=== PATIENT | female | born 1950 | race Caucasian/White ===

== ENCOUNTER 2020-08-08 12:39 | Emergency (ER) | payer MEDICARE, BC, SELFPAY ==
[2020-08-08 13:00] VITALS: BP 121/65; PULSE 82; RESP 19; TEMP 36.8; O2SAT 98; BMI 29.0
--- NOTE | 2020-08-08 13:33 | HMH.EDUTC ---
[facility] [place] Disposition Clinical Impression: Encounter for laboratory testing for COVID-19 virus Disposition: Home, Self-Care Condition on Discharge: Good Instructions: DI for COVID-19 (Suspected or Confirmed ), Coronavirus Disease 2019, Preventing the Spread of Coronavirus Discharge Instructions Additional Instructions: *Monitor Temp, Over the counter Motrin or Tylenol as directed/as needed Tylenol every 4 hours and Motrin every 6 hours (as long as your family doctor has told you that you can take it) for fever or pain. and straight to ER if unable to lower temp less than 101.0 after medication given Follow up IMMEDIATELY for new or worsening symptoms or no Noticeable improvement over the next 48-72 hours. 911 for difficulty breathing or swallowing You were tested for today for COVID19 your test result should be back in the next 24-48 hours, you may call to the [facility] to see if your test results are back in the next 48 hours [phone] [facility] hours are 9am-9pm You was given a handout with instructions for Self Quarantine and Self isolation for while you wait on test results and what to do if they are positive If you are positive the Health Dept will be contacting you also Referrals: Alvina Bryant [Primary Care Provider] - As needed Time of Disposition: 13:43 Medical Decision Making - Dami Inquiry Pt receiving controlled substance: No Dami was queried for this patient: No Vital Signs: 08/08/20 13:00 Temperature 98.2 F Temperature Source Oral Pulse Rate [Right Brachial] 82 Respiratory Rate 19 Blood Pressure [Right Arm] 121/65 Blood Pressure Mean [Right Arm] 83 Blood Pressure Source [Right Arm] Automatic Cuff Blood Pressure Position [Right Arm] Sitting 02 Sat by Pulse Oximetry 98 Oxygen Delivery Method Room Air Orders (Tests/Meds): ORDERS Category Date Time Status Covid-19 Nasal PCR ([facility]) Routine Lab 08/08/20 12:56 Ordered [facility] [place] HPI - General Stated complaint: indigestion Time Seen by Provider: 08/08/20 13:42 Mode of Arrival: Ambulatory Source of Information: Patient Limitations: No Limitations Description of Symptoms (Recalled from Triage Doc. by RN): COVID TEST D/T BEING SICK WITH PENDING COVID TEST. PT DENIES SYMPTOMS HEENT Symptoms (Recalled from RN notes): No Resp Symptoms (Recalled from RN notes): No Skin Symptoms (Recalled from RN notes): No MS Symptoms (Recalled from RN notes): No Functional Status (Recalled from RN notes): WNL - History of Present Illness Provider Complaint: Patient state that she just traveled back from [facility] that her has been feeling ill and having COVID like symptoms and she has been around him so she wanted to get tested for COVID Denies any symptoms at this time - Related Data Allergies Allergy/AdvReac Type Severity Reaction Status Date / Time No Known Allergies Allergy Verified 08/08/20 13:32 - Worker's Comp Is this a Worker's Comp case?: No [facility] History - Hepatitis A Screen Drug use history?: No High risk sexual behaviors?: No History of sexually transmitted infection?: No Currently employed?: No Childcare worker?: No Do you have indoor plumbing?: Yes Do you have electricity?: Yes Attestation statement:: This patient has been screened for Hepatitis A risk factors. I have reviewed the patient's past medical history: Yes ROS Obtained: Yes All systems reviewed & no additional complaints, Yes Systems reviewed as appropriate & no additional complaints - Constitutional Constitutional: Reports system reviewed and no additional complaints, except as docu, Denies body ache, Denies chills, Denies fever(s), Denies headache(s) - ENT Ears, Nose, Mouth, and Throat: Reports system reviewed and no additional complaints, except as docu, Denies sinus pain, Denies sinus pressure, Denies sore throat - Cardiovascular Cardiovascular: Reports system reviewed and no additional complaints, except as docu - Respiratory Respiratory: Reports sy
[2020-08-08 13:48] VITALS: BP 121/65; PULSE 82; RESP 19; TEMP 36.8; O2SAT 98
== END 2020-08-08 13:50 | disposition home or self-care (01) ==
PROVIDERS: Emergency Provider Nurse Practitioner; PCP Physician Assistant
DX: Z20.822 Contact with and (suspected) exposure to COVID-19 (principal)
CPT/HCPCS: G0463; 99202; U0003

== ENCOUNTER 2020-08-14 09:01 | Emergency (ER) | payer MEDICARE, BC, SELFPAY ==
[2020-08-14 09:05] VITALS: BP 136/92; PULSE 67; RESP 20; TEMP 36.2; O2SAT 99; BMI 29.0
[2020-08-14 09:33] VITALS: BP 136/92; PULSE 67; RESP 20; TEMP 36.2; O2SAT 99
--- NOTE | 2020-08-14 09:36 | HMH.EDUTC ---
[facility] [place] Clinical Impression: Encounter for laboratory testing for COVID-19 virus Disposition: Home, Self-Care Condition on Discharge: Good Instructions: Preventing the Spread of Coronavirus Discharge Instructions Additional Instructions: isolate until test results are known Referrals: Alvina Bryant [Primary Care Provider] - Time of Disposition: 09:39 Medical Decision Making - Dami Inquiry Pt receiving controlled substance: No Vital Signs: 08/14/20 09:05 Temperature 97.2 F L Temperature Source Oral Pulse Rate [Left Brachial] 67 Respiratory Rate 20 Blood Pressure [Left Arm] 136/92 H Blood Pressure Mean [Left Arm] 106 Blood Pressure Source [Left Arm] Automatic Cuff Blood Pressure Position [Left Arm] Sitting 02 Sat by Pulse Oximetry 99 Oxygen Delivery Method Room Air Orders (Tests/Meds): ORDERS Category Date Time Status Covid-19 Nasal PCR ([facility]) Routine Lab 08/14/20 09:03 Ordered [facility] [place] HPI - General Chief complaint: Urgent [facility] Stated complaint: COVID Test Time Seen by Provider: 08/14/20 09:36 Mode of Arrival: Ambulatory Source of Information: Patient Description of Symptoms (Recalled from Triage Doc. by RN): COVID TEST D/T EXPOSURE; DENIES SYMPTOMS HEENT Symptoms (Recalled from RN notes): No Resp Symptoms (Recalled from RN notes): No Skin Symptoms (Recalled from RN notes): No MS Symptoms (Recalled from RN notes): No Functional Status (Recalled from RN notes): WNL - History of Present Illness Provider Complaint: 70 yr old female presnets for covid test. pt states her tested positive last and she has tested neg and the health dept told her to come in for covid test so she can come out of [facility]. pt states no symptoms - Related Data Allergies Allergy/AdvReac Type Severity Reaction Status Date / Time No Known Allergies Allergy Verified 08/08/20 13:32 - Worker's Comp Is this a Worker's Comp case?: No [facility] History - Hepatitis A Screen Drug use history?: No High risk sexual behaviors?: No History of sexually transmitted infection?: No Currently employed?: No Childcare worker?: No Do you have indoor plumbing?: Yes Do you have electricity?: Yes Attestation statement:: This patient has been screened for Hepatitis A risk factors. I have reviewed the patient's past medical history: Yes ROS Obtained: Yes Systems reviewed as appropriate & no additional complaints - Constitutional Constitutional: Reports system reviewed and no additional complaints, except as docu, Denies fever(s) - Eyes Eyes: Reports system reviewed and no additional complaints, except as docu, Denies loss of vision - ENT Ears, Nose, Mouth, and Throat: Reports system reviewed and no additional complaints, except as docu, Denies sore throat - Cardiovascular Cardiovascular: Reports system reviewed and no additional complaints, except as docu, Denies chest pain at rest - Respiratory Respiratory: Reports system reviewed and no additional complaints, except as docu, Denies dyspnea - Gastrointestinal Gastrointestingal: Reports: system reviewed and no additional complaints, except as docu. Denies: nausea, vomiting - Genitourinary Female Genitourinary: Reports system reviewed and no additional complaints, except as docu - Musculoskeletal Musculoskeletal: Reports system reviewed and no additional complaints, except as docu, Denies joint pain - Integumentary/Breasts Skin/Breast: Reports system reviewed and no additional complaints, except as docu, Denies rash - Neurologic Neurologic: Reports system reviewed and no additional complaints, except as docu, Denies dizziness - Endocrine Endocrine: Reports system reviewed and no additional complaints, except as docu, Denies fatigue - Hematologic/Lymphatic Henatologic/Lymphatic: Reports system reviewed and no additional complaints, except as docu, Denies lymphadenopathy - Allergic/Immunologic Allergic/Immunologic: Repor
== END 2020-08-14 09:37 | disposition home or self-care (01) ==
PROVIDERS: Emergency Provider Nurse Practitioner Family; PCP Physician Assistant
DX: Z20.822 Contact with and (suspected) exposure to COVID-19 (principal)
CPT/HCPCS: G0463; 99202; U0003

== ENCOUNTER 2022-11-20 18:56 | Emergency (ER) | payer MEDICARE, BC, SELFPAY ==
[2022-11-20 18:57] VITALS: BP 135/86; PULSE 111; RESP 18; TEMP 36.7; O2SAT 98; BMI 27.3
--- NOTE | 2022-11-20 19:11 | XR_ITS ---
PROCEDURE INFORMATION: Exam: XR Chest Exam date and time: 11/20/2022 7:07 PM Age: 72 years old Clinical indication: Shortness of breath; Additional info: Increased breathing TECHNIQUE: Imaging protocol: Radiologic exam of the chest. Views: 2 views. COMPARISON: No relevant prior studies available. FINDINGS: Lungs: No consolidation. Pleural spaces: No pneumothorax. Heart/Mediastinum: No cardiomegaly. Bones/joints: Scoliosis. No acute fracture. IMPRESSION: No acute findings.
--- NOTE | 2022-11-20 19:28 | HMH.EDGENADL ---
Discharge Plan Disposition Chief Complaint: Anxiety Referrals Follow up/Referrals: Conenr Harris [Primary Care Provider] - See instructions Clinical Impressions Clinical Impression: Hyperthyroidism, Tachycardia, Anxiety Discharge ED Provider: Ronaldo Márquez General Adult HPI General Chief complaint: Anxiety Stated complaint: Possible Panic Attach Time Seen by Provider: 11/20/22 18:59 Mode of Arrival: Ambulatory Source of Information: Patient Limitations: No Limitations Description of Symptoms (Recalled from ER Triage Doc. by RN): C/O HIGH HEART RATE HIGH 119, SOME INCREASED BREATHING AND CLAMY, STATES THAT SHE HAS A HX OF ANXIETY ATTACKS, ALSO SHE JUST FOUND HER SON IS SICK WITH NO CURE FOR THE DISEASE. History of Present Illness HPI narrative: This is a 72-year-old female with history of anxiety, hypertension, hyperlipidemia, hypothyroidism who is presenting with palpitations. Patient states that she started palpitations 1 day prior to arrival. Denies any overt chest pain. Since the palpitations started, she has had intermittent episodes of shortness of breath, clamminess, diaphoresis, and nausea without vomiting. Denies any DVT or PE risk factor history, chest trauma, fevers or chills, cough, abdominal pain, dysuria hematuria, or any other concerns. States that this feels similar to previous panic attacks, however this was lasting longer than usual. She states that she has numerous social stressors and personal stressors, which she is attributing this to. Has not noticed anything that makes it better or worse. Related Data Allergies Allergy/AdvReac Type Severity Reaction Status Date / Time No Known Allergies Allergy Verified 08/08/20 13:32 [facility] Disclaimer: The information contained in this section may have been updated after the patient was seen, as this information can be updated by other users. Social History Smoking Status: Never smoker alcohol intake: current current occupational status: unemployed Travel in the last 8 weeks: None ROS Obtained: Yes All systems reviewed & no additional complaints except as documented Physical Exam General General appearance: alert and in no apparent distress Head Head exam: atraumatic, normocephalic and normal inspection Eye Eye exam: Present normal appearance, PERRL and EOMI ENT ENT exam: Present normal exam, normal oropharynx, mucous membranes moist, TM's normal bilaterally and normal external ear exam Neck Neck exam: Present normal inspection, full ROM and trachea midline; Absent meningismus or lymphadenopathy Chest Chest inspection: Present normal inspection and symmetric chest wall rise; Absent tenderness Respiratory Respiratory exam: Present normal lung sounds bilaterally; Absent respiratory distress Cardiovascular Cardiovascular exam: Present regular rate, normal rhythm and tachycardia; Absent JVD Abdominal Exam Abdominal exam: Present soft and normal bowel sounds; Absent distention, tenderness or guarding Extremities Exam Extremities exam: Present normal inspection, full ROM and normal capillary refill; Absent calf tenderness Back Exam Back exam: Present normal inspection; Absent tenderness Neurological Exam Neurological exam: Present alert and oriented X3 Psychiatric Psychiatric exam: Present normal affect and normal mood Skin Skin exam: Present warm, dry, intact and normal color Lymphatic Lymphatic Findings: no adenopathy Medical Decision Making Medical Records Medical records reviewed: Yes I reviewed the patient's medical records. Dami Inquiry Pt receiving controlled substance: No Dami was queried for this patient: No Vital Signs: 11/20/22 18:57 Temperature 98.1 F Temperature Source Oral Pulse Rate [Left Radial] 111 H Respiratory Rate 18 Blood Pressure [Right Arm] 135/86 Blood Pressure Mean [Right Arm] 102 Blood Pressure Source [Right Arm] Automatic Cuff Blood Pressure Position [Right Arm] Sitting 02 Sat by Pulse Oximet
[2022-11-20 19:30] VITALS: BP 178/70; PULSE 106; O2SAT 95
--- NOTE | 2022-11-20 19:32 | ECG_ITS ---
APPROVED REPORT Exam: Resting ECG HR:105 bpm ECG Measurements Heart Rate 105 AXES MO 171 P 47 QRSd 80 QRS -22 QT 345 T 44 QTc 406 Conclusion SINUS TACHYCARDIA BORDERLINE LEFT AXIS DEVIATION [QRS AXIS < -20] MINIMAL ST DEPRESSION [0.025+ mV ST DEPRESSION] ABNORMAL RHYTHM ECG UNCONFIRMED REPORT Electronically signed by : Brenton Etienne MD 11/21/2022 22:05:36
[2022-11-20 19:35] LABS: Basophils % 0.5 % (0.1-2.0); Eosinophils # 0.2 K/mm3 (0.0-0.4); Eosinophils % 2.2 % (0.1-12.0); Hematocrit 41.1 % (37.0-47.0); Hemoglobin 13.7 g/dL (12.2-16.2); Lymphocytes # 1.4 K/mm3 (0.7-4.5); Lymphocytes % 15.2 % (10-50); Mean Corpuscular HGB Conc 33.3 g/dL (31.8-35.4); Mean Corpuscular Hemoglobin 29.4 pg (27.0-31.2); Mean Corpuscular Volume 88.2 fl (81-99); Mean Platelet Volume 8.3 fl (7.4-10.4); Monocytes # 0.4 K/mm3 (0.1-1.0); Monocytes % 4.2 % (1.7-9.3); Neutrophils # 7.1 K/mm3 (1.8-7.8); Platelet Count 265 K/mm3 (142-424); Red Blood Count 4.66 M/mm3 (4.20-5.40); Red Cell Distribution Width 13.5 % (11.5-17.5); White Blood Count 9.1 K/mm3 (4.8-10.8)
[2022-11-20 19:42] LABS: Anion Gap 16.3 mEq/L (5-15); Blood Urea Nitrogen 19 mg/dl (7-17); Calcium 8.7 mg/dl (8.4-10.2); Carbon Dioxide 27 mmol/L (22.0-30.0); Chloride 97 mmol/L (98-107); Creatinine Clearance Estimated 63 mL/min (50-200); Estimated Glomerular Filt Rate 61 ml/min (>60); GFR (African American) 74 ML/MIN (>60); Glucose 109 mg/dl (74-100); Potassium 3.3 mmoL/L (3.5-5.1); Sodium 137 mmol/L (136-145)
[2022-11-20 19:46] LABS: D-Dimer 0.82 ug/mL (0.0-0.5)
[2022-11-20 19:56] LABS: Troponin I < 0.01 ng/ml (0.00-0.034)
[2022-11-20 20:00] VITALS: BP 129/81; PULSE 108; O2SAT 94
[2022-11-20 20:00] LABS: T4 (Thyroxine) 19.2 ug/dl (5.53-11.0)
[2022-11-20 20:14] LABS: Thyroid Stimulating Hormone < 0.02 uIU/mL (0.465-4.68)
--- NOTE | 2022-11-20 20:17 | CT_ITS ---
PROCEDURE INFORMATION: Exam: CTA Chest With Contrast Exam date and time: 11/20/2022 8:47 PM Age: 72 years old Clinical indication: Shortness of breath; Additional info: Persistent tachycardia, SOA TECHNIQUE: Imaging protocol: Computed tomographic angiography of the chest with contrast. 3D rendering (Not supervised by radiologist): MIP and/or 3D reconstructed images were created by the technologist. Radiation optimization: All CT scans at this facility use at least one of these dose optimization techniques: automated exposure control; mA and/or kV adjustment per patient size (includes targeted exams where dose is matched to clinical indication); or iterative reconstruction. Contrast material: ISOVUE; Contrast volume: 70 ml; Contrast route: INTRAVENOUS (IV); REPORTING DATA: Count of CT and Cardiac NM exams in prior 12 months: This patient has received 0 known CTs and 0 known cardiac nuclear medicine studies in the 12 months prior to the current study. COMPARISON: CR XR CHEST 2V 11/20/2022 7:07 PM FINDINGS: Pulmonary arteries: Motion artifact degrades the study. No large central pulmonary emboli. Aorta: Unremarkable. No aortic aneurysm. No aortic dissection. Lungs: Unremarkable. No consolidation. No masses. Pleural spaces: Unremarkable. No pneumothorax. No pleural effusion. Heart: Unremarkable. No cardiomegaly. No pericardial effusion. Lymph nodes: Unremarkable. No enlarged lymph nodes. Bones/joints: Unremarkable. No acute fracture. Soft tissues: Unremarkable. IMPRESSION: Motion artifact degrades the study. No large central pulmonary emboli.
--- NOTE | 2022-11-20 20:45 | PC.NURSE ---
patient gone to RAD at this time.
--- NOTE | 2022-11-20 20:59 | PC.NURSE ---
patient back in room from [facility] at this time.
[2022-11-20 22:05] VITALS: BP 112/75; PULSE 76; RESP 16; TEMP 36.7; O2SAT 98
== END 2022-11-20 22:20 | disposition home or self-care (01) ==
PROVIDERS: Emergency Provider Emergency Medicine; PCP Family Medicine
DX: R00.2 Palpitations (principal); R06.02 Shortness of breath
CPT/HCPCS: 71046; 71275; 80048; 84436; 84443; 84484; 85025; 85378; 93005; 99285; Q9967

== ENCOUNTER 2024-11-12 14:08 | Outpatient (CLI) | payer MEDICARE, BC, SELFPAY ==
--- NOTE | 2024-11-12 14:11 | XR_ITS ---
FINAL REPORT CLINICAL HISTORY: rt shoulder pain COMPARISON: None FINDINGS: RIGHT SHOULDER Two views demonstrate no acute fracture or dislocation. There is advanced joint space narrowing of the glenohumeral joint. Subchondral sclerosis is noted. There is prominent osteophyte formation at the inferior margin of the glenohumeral joint. The soft tissues are unremarkable. IMPRESSION: Advanced osteoarthritis with no acute process. Reviewed, Interpreted and Dictated by Satish Otero MD Transcribed by Bonita Reddy Authenticated and [facility]
== END 2024-11-12 23:59 | disposition home or self-care (01) ==
LOC: RAD 14:09
PROVIDERS: PCP Family Medicine; Visit Provider Physician Assistant
DX: M25.511 Pain in right shoulder (principal)
CPT/HCPCS: 73030

== ENCOUNTER 2024-12-16 19:41 | Emergency (ER) | payer MEDICARE, BC, SELFPAY ==
[2024-12-16 19:51] VITALS: BP 112/92; PULSE 89; RESP 20; TEMP 36.6; O2SAT 97; BMI 25.8
--- NOTE | 2024-12-16 20:01 | PC.NURSE ---
Pt in quite a bit of pain. Skin pink warm and dry Resp full and easy Speech clear and appropriate. Family at bedside
[2024-12-16 20:32] VITALS: BP 116/41; PULSE 85; O2SAT 95
[2024-12-16] MEDS: LIDOCAINE 5% TRANSDERMAL PATCH 1 EACH TD (20:35)
[2024-12-16] MEDS: predniSONE 20MG TAB 60 MG PO (20:35)
[2024-12-16] MEDS: KETOROLAC 30MG/ML VIAL 30 MG IM (20:36)
--- NOTE | 2024-12-16 20:39 | HMH.EDGENADL ---
Discharge Plan Disposition Patient Disposition: Home, Self-Care Prescriptions Prescriptions: New lidocaine 4 % adhesive patch,medicated 1 patch topical DAILY Qty: 5 0RF Rx Instructions: may leave on for up to 12 hrs prednisone 50 mg tablet 50 mg PO DAILY 5 Days Qty: 5 0RF Rx Instructions: Please begin 1 day after ED visit naproxen 500 mg tablet 500 mg PO BID PRN (Reason: pain) 7 Days Qty: 14 0RF No Action levothyroxine 50 mcg tablet PO Patient Comments: TAKE 1 TABLET BY MOUTH EVERY DAY fenofibrate nanocrystallized 145 mg tablet PO Patient Comments: TAKE 1 TABLET BY MOUTH EVERY DAY metformin 1,000 mg tablet PO Patient Comments: TAKE 1 TABLET BY MOUTH TWICE A DAY atorvastatin 40 mg tablet PO Patient Comments: TAKE 1 TABLET BY MOUTH EVERY DAY raloxifene 60 mg tablet PO Patient Comments: TAKE 1 TABLET BY MOUTH EVERY DAY metoprolol succinate 100 mg tablet extended release 24 hr PO Patient Comments: TAKE 1 TABLET BY MOUTH EVERY DAY diclofenac sodium 75 mg tablet,delayed release (DR/EC) PO Patient Comments: TAKE 1 TABLET BY MOUTH TWICE A DAY loratadine 10 mg tablet PO Patient Comments: TAKE 1 TABLET BY MOUTH EVERY DAY Referrals Follow up/Referrals: Conner Harris [Primary Care Provider, Medical] - See instructions Activity Restrictions/Add. Instructions Additional Instructions/Restrictions: Please take your anti-inflammatory medications including naproxen and prednisone and apply topical lidocaine as needed. Please also follow-up with a total joint shoulder specialist as previously instructed. Clinical Impressions Clinical Impression: Osteoarthritis of right shoulder, Chronic pain in shoulder Print Language Print Language: Hungarian Discharge ED Provider: Izzy Arcos General Adult HPI General Chief complaint: PAIN Stated complaint: Right shoulder pain radiating down arm Time Seen by Provider: 12/16/24 20:08 Mode of Arrival: Ambulatory Source of Information: Patient Description of Symptoms (Recalled from ER Triage Doc. by RN): Pt presents to ED for R shoulder pain. Pt states she saw Dr. Eddy yesterday and is going to need a shoulder replacement. Pt states her pain is 10/10 and Tylenol is not working. Pt is A&O*4 and spouse is bedside. History of Present Illness HPI narrative: Patient is a 74-year-old female presenting today with chronic and severe right shoulder pain. She has been dealing with this for many months has seen Dr. Eddy and his team multiple times in clinic and has been diagnosed with severe and advanced osteoarthritis with significant spurring both in the humeral head and the glenohumeral joint with [id number] arthritis. Has been referred multiple times to a total joint specialist Dr. Saw Nation but she deferred this in the past but is now attempting to get a follow-up appointment. She saw Dr. Eddy yesterday he offered her a steroid injection but she declined this given the fact that this may delay her surgical intervention. However no further pain medications were given and she presents to the emergency department with severe debilitating pain she has very difficult time moving her arm and states that the pain is keeping her from sleeping at [employer]. She has only tried Tylenol so far for this pain. Related Data Home Medications ?Medication ?Instructions ?Recorded ?Confirmed atorvastatin 40 mg tablet mg PO 11/12/24 12/15/24 diclofenac sodium 75 mg mg PO 11/12/24 12/15/24 tablet,delayed release fenofibrate nanocrystallized 145 mg PO 11/12/24 12/15/24 mg tablet levothyroxine 50 mcg tablet mcg PO 11/12/24 12/15/24 loratadine 10 mg tablet mg PO 11/12/24 12/15/24 metformin 1,000 mg tablet mg PO 11/12/24 12/15/24 metoprolol succinate 100 mg mg PO 11/12/24 12/15/24 tablet,extended release 24 hr raloxifene 60 mg tablet mg PO 11/12/24 12/15/24 Previous Rx's ?Medication ?Instructions ?Recorded lidocaine 4 % topical patch 1 patch topical DAILY #5 ea 12/16/24 naproxen 500 mg tablet 500 mg PO BID PRN pain 7 days #14 12/16/24 tabs prednisone 50 mg tablet 50 mg PO DAILY 5 days #5 tabs 12/16/24 Allergies Allergy/AdvReac Type Severity Reaction Status Date / Time No Known Allergies Allergy Verified 12/15/24 15:41 [facility] Disclaimer: The information contained in this section may have been updated after the patient was seen, as this information can be updated by other users. Social History (Reviewed 11/12/24 @ 14:54 by Gisel Boswell [facility]) Smoking Status: Unknown if ever smoked alcohol intake: current current occupational status: unemployed Travel in the last 8 weeks?: None Have you lived/traveled outside [place] in past 30 days?: No Contact w/someone who lives/traveled outside [place] past 30 days?: No Exposure to someone with infectious disease in past 14 days?: No Do you have a fever (greater than 100.4 F or 38 C)?: No Have you tested positive for COVID-19?: No Exposed to someone with COVID-19 in past 14 days?: No Do you have a sore throat?: No Do you have a cough?: No Do you have any weakness?: No Do you have any diarrhea?: No Are you experiencing any unusual bleeding?: No Do you have any muscle aches/pain?: No Do you have any abdominal pain?: No Are you experiencing loss of taste or smell?: No Other Medical History Have you received the Pneumonia Vaccine: Yes ROS Obtained: Yes All systems reviewed & no additional complaints except as documented Physical Exam General General appearance: alert Respiratory Respiratory exam: Present normal lung sounds bilaterally Cardiovascular Cardiovascular exam: Present regular rate Extremities Exam Extremities exam: Present other (Pain in the right shoulder region no warmth or swelling or redness difficulty with range of motion given significant pain) Neurological Exam Neurological exam: Present alert and oriented X3 Medical Decision Making Medical Records Screening: Per USPSTF and CDC recommendations, given the prevalence of disease in our region, it is our hospital?s policy to screen for HIV and viral Hepatitis for all patients aged 18 and over and those with ongoing risk factors. Dami Inquiry Pt receiving controlled substance: No Vital Signs: 12/16/24 19:51 12/16/24 20:32 Temperature 97.9 F Temperature Source Oral Pulse Rate 85 Pulse Rate [Left] 89 Respiratory Rate 20 Blood Pressure 116/41 L Blood Pressure [Right Arm] 112/92 H Blood Pressure Mean 66 Blood Pressure Mean [Right Arm] 98 02 Sat by Pulse Oximetry 97 95 Oxygen Delivery Method Room Air Orders (Tests/Meds): ED MEDICATIONS Generic Name Dose Route Start Last Admin Trade Name Freq PRN Reason Stop Dose Admin Morphine Sulfate 4 mg 12/16/24 21:09 Morphine 2mg/Ml Syringe IM 12/16/24 21:10 ONCE ONE Discontinued Medications Generic Name Dose Route Start Last Admin Trade Name Freq PRN Reason Stop Dose Admin Ketorolac Tromethamine 30 mg 12/16/24 20:30 12/16/24 20:36 Ketorolac 30mg/Ml Vial IM 12/16/24 20:31 30 mg ONCE ONE Administration Lidocaine 1 each 12/16/24 20:30 12/16/24 20:35 Lidocaine 5% Transdermal Patch TD 12/16/24 20:31 1 each ONCE ONE Administration Prednisone 60 mg 12/16/24 20:30 12/16/24 20:35 Prednisone 20mg Tab PO 12/16/24 20:31 60 mg ONCE ONE Administration Medical Decision Narrative: Patient with above history and physical with severe pain from chronic osteoarthritis. I personally reviewed the patient's recent x-ray which shows very severe advanced osteoarthritis. She has not tried any NSAIDs or steroids systemically. Will give her a dose of prednisone and IM Toradol. She states she has only been taking Tylenol. She does have on her medication list diclofenac I will make sure that she has not been taking that in addition to medications I will prescribe. Also lidocaine patch has been administered. Will prescribe her naproxen and systemic steroids and advised that she continue to use topical lidocaine. I discussed with her the risk and benefits of opiates and do not believe that is indicated for this chronic pain at the moment. She has been encouraged to follow-up with a joint surgeon that she was referred to. Reassessments 9:11 PM patient feeling somewhat better but still having significant pain I did go ahead and give her a single dose of IM morphine but told her that we would not be sending her home at this and she understood and was agreeable to this. She has been given a prescription of naproxen and prednisone to go home with in addition to lidocaine patches. I confirmed that she is not taking diclofenac currently. She will follow-up with her total joint specialist as previously instructed. Critical Care Critical Care Time Critical Care Time: No
[2024-12-16] MEDS: MORPHINE 2MG/ML SYRINGE 4 MG IM (21:14)
[2024-12-16 21:21] VITALS: BP 110/66; PULSE 76; RESP 18; TEMP 36.7; O2SAT 96
== END 2024-12-16 21:22 | disposition home or self-care (01) ==
PROVIDERS: Emergency Provider Student in an Organized Health Care Education/Training Program; PCP Family Medicine
DX: M19.011 Primary osteoarthritis, right shoulder (principal); M25.511 Pain in right shoulder
CPT/HCPCS: 96372; 99284; J1885; J2270